=== PATIENT | female | born 1995 | race American Indian/Alaskan Native ===

== ENCOUNTER 2018-09-20 14:14 | Emergency (ER) | payer MEDICAID ==
[2018-09-20 15:47] VITALS: BMI 54.2
[2018-09-20 17:20] LABS: SQUAMOUS EPITHIAL 14 /hpf (0-5); URINE BACTERIA RARE (<OCC); URINE BILIRUBIN NEGATIVE (NEGATIVE); URINE BLOOD SMALL (NEGATIVE); URINE CALCIUM OXALATE CRYSTALS OCC /hpf (<OCC); URINE CLARITY CLOUDY (Clear); URINE COLOR AMBER (YELLOW); URINE GLUCOSE (UA) NEG (Normal); URINE LEUKOCYTE ESTERASE LARGE Leu/uL (Negative); URINE PROTEIN 100 mg/dL (NEGATIVE)
[2018-09-20 22:40] VITALS: BP 113/44; PULSE 84; O2SAT 100
--- NOTE | 2018-09-21 03:58 | OBHP ---
Datetime: 09/20/2018 17:43 IP Adm Impression: , intrauterine IP Admit Plan: Observation/Evaluation; Discharge home Admit Comment, IP Provider: 23 year old at 34.4 weeks (confirmed by LMP) presents with a prescr iption from Tuyet Cook CNM for NST d/t decreased movement and vaginal pains. Patient states sh e has had normal movement in the last few days. Vaginal pain is described as a constant dull ac he as if the head of the baby is pushing on her cervix. She reports the frequency as every hour but s ometimes up to 4 times an hour. She denies any loss of fluid or vaginal bleeding. Previous pregnancie s uncomplicated. : Sanjuana Garcia CNM PMH: denies Allergies: denies Meds: denies FHx: denies ROS: denies headache, change in vision, dizziness, nausea, vomiting, shortness of breath, difficul ty breathing, chest pain, edema and syncope PE: comfortable, in no acute distress Abd: no tenderness to palpation Back: no tenderness to palpation Extremities: no pitting edema VE: 0/0/-3. No active bleeding. No external lesions noted. Labs: unknown, no records Assessment: 23 year old at 34.4 weeks (confirmed by LMP) presents with a prescription for NST d/t decreased movement and vaginal pains. Plan: -Reassuring NST - reactive, Cat 1, FHR 150 bpm, moderate variability, 15x15 accel, no decel -No contractions on toco -UA- positive for U/A - Patient given script for Keflex 500mg po TID x5 days -Patient educated on emergent signs and symtoms warranting immediate visit back to [facility] -Follow up with provider -Case seen and discussed with Dr Whitaker --Jennifer Vela MD PGY1 Addendum: I saw and examined patient up presentation. heart tracing category 1. No evidence of labor at this time. Urinalysis consistent with urinary tract infection. Patient given prescription f or antibiotics and discharged home with labor precautions. Patient will follow up with clinic as already scheduled. Discussed plan with patient and all patient questions answered. [place] Pelvic Type - PN: Adequate Extremities - PN: Normal Abdomen - PN: Normal Back - PN: Not Done Breast - PN: Not Done Lungs - PN: Normal Heart - PN: Normal Thyroid - PN: Not Done Neurologic - PN: Not Done HEENT - PN: Not Done General - PN: Normal FHR - Baseline A Provider: 150 EGA AdmitDate IP: 34.4 Vital Signs Provider: Reviewed IP Chief Complaint: Decreased movement; Other NICHD Variability Prov Fetus A: Moderate 6-25bpm NICHD Accel Fetus A IP Provider: [id number] FHR Category Provider Fetus A: Category I NICHD Decel Fetus A IP Provider: None Dilatation, Provider: 0 Effacement, Provider: 0 Station, Provider: -3 Genitourinary Exam: Not Done DTRs - PN: Not Done
== END 2018-09-20 18:40 | disposition home or self-care (01) ==
LOC: H.EROB2 14:14
DX: O36.8131 Decreased fetal movements, third trimester, fetus 1 (principal); O26.93 Pregnancy related conditions, unspecified, third trimester; R10.2 Pelvic and perineal pain; Z3A.34 34 weeks gestation of pregnancy